=== PATIENT | female | born 1940 | race Caucasian/White ===

== ENCOUNTER 2018-08-18 15:31 | Outpatient (REF) | payer MEDICARE, OTHER, SELFPAY ==
[2018-08-18 20:53] LABS: TSH 0.84 uIU/mL (0.358-3.74)
== END 2018-08-18 15:51 ==
LOC: NCHCN 15:31
PROVIDERS: PCP Nurse Practitioner Family; Visit Provider Registered Nurse
DX: R41.3 Other amnesia (principal)
CPT/HCPCS: 84443

== ENCOUNTER 2019-01-06 14:43 | Outpatient (REF) | payer MEDICARE, OTHER, SELFPAY ==
[2019-01-06 21:20] LABS: Absolute Basophil Count 0.02 k/cumm (0.0-0.2); Absolute Eosinophil Count 0.16 k/cumm (0.0-0.7); Absolute Lymphocyte Count 1.11 k/cumm (1.2-3.4); Absolute Monocyte Count 0.51 k/cumm (0.11-0.7); Basophils % 0.4; Eosinophils % 3.1; HCT 36.2 % (36.0-46.0); HGB 11.7 g/dL (12.0-15.5); Lymphocytes % 21.3; Mean Corp. HGB Concentration 32.3 g/dL (32.0-36.0); Mean Corpuscular Hemoglobin 31.2 pg (27.0-33.0); Mean Corpuscular Volume 96.5 fL (80-95); Mean Platelet Volume 8.9 fL (8.0-11.0); Monocytes % 9.8; Neutrophils % 65.4; Platelet Count 355 x1000/uL (130-400); RBC 3.75 m/cumm (4.00-5.20); RBC Distribution Width 12.9 % (11.7-14.6)
[2019-01-06 21:36] LABS: Anion Gap 5.2 mmol/L (3-11); BUN 17 mg/dL (7-18); CO2 31.8 mmol/L (21.0-32.0); Calcium 9.4 mg/dL (8.5-10.1); Chloride 101 mmol/L (98-107); Estimated GFR 47.91 (mL/min/1.73m2); Glucose 117 mg/dL (70-100); Magnesium 1.9 mg/dL (1.8-2.4); Potassium 4.4 mmol/L (3.5-5.1); Sodium 138 mmol/L (136-145)
== END 2019-01-06 15:03 ==
LOC: NCHCN 14:43
PROVIDERS: PCP Nurse Practitioner Family; Visit Provider Family Medicine
DX: M79.602 Pain in left arm (principal)
CPT/HCPCS: 80048; 83735; 85025

== ENCOUNTER 2019-08-16 12:50 | Outpatient (REF) | payer MEDICARE, OTHER, SELFPAY ==
[2019-08-16 22:36] LABS: HCT 38.6 % (36.0-46.0); HGB 12.9 g/dL (12.0-15.5); Mean Corp. HGB Concentration 33.4 g/dL (32.0-36.0); Mean Corpuscular Hemoglobin 31.5 pg (27.0-33.0); Mean Corpuscular Volume 94.4 fL (80-95); Platelet Count 367 x1000/uL (130-400); RBC 4.09 m/cumm (4.00-5.20); RBC Distribution Width 12.9 % (11.7-14.6); White Blood Cell Count 7.74 k/cumm (4.4-10.8)
[2019-08-16 23:10] LABS: ALT 26 U/L (14-59); AST 19 U/L (15-37); Albumin 4.1 g/dL (3.4-5.0); Alkaline Phosphatase 65 U/L (46-116); Anion Gap 8.9 mmol/L (3-11); BUN 15 mg/dL (7-18); Bilirubin, Total 0.5 mg/dL (0.2-1.0); CO2 30.1 mmol/L (21.0-32.0); Calcium 10.5 mg/dL (8.5-10.1); Chloride 101 mmol/L (98-107); Estimated GFR 53.35 (mL/min/1.73m2); Glucose 86 mg/dL (70-100); Magnesium 2.2 mg/dL (1.8-2.4); Potassium 4.9 mmol/L (3.5-5.1); Sodium 140 mmol/L (136-145); TSH 1.37 uIU/mL (0.36-3.74); Total Protein 7.1 g/dL (6.4-8.2); Vitamin B12 1002 pg/mL (193-986)
== END 2019-08-16 13:10 ==
LOC: NCHCN 12:50
PROVIDERS: PCP Nurse Practitioner Family; Visit Provider Registered Nurse
DX: R41.3 Other amnesia (principal); F41.8 Other specified anxiety disorders; R27.9 Unspecified lack of coordination; R42 Dizziness and giddiness
CPT/HCPCS: 80053; 85027; 82607; 83735; 84443

== ENCOUNTER 2019-09-15 13:05 | Emergency (ER) | payer MEDICARE, OTHER, SELFPAY ==
[2019-09-15 13:11] VITALS: BP 176/95; PULSE 99; RESP 17; TEMP 35.6; O2SAT 95
--- NOTE | 2019-09-15 13:23 | DI.RAD_ITS ---
EXAM: XR SHOULDER RT COMPLETE 2+V INDICATION: non traumatic right shoulder pain. COMPARISON: No exams were available for comparison TECHNIQUE: 2D digital imaging was performed. FINDINGS: Fracture or dislocation is seen. There are no significant degenerative changes. The humeral head i s normally position. Visualized portions of the ribs are unremarkable. IMPRESSION: Negative right shoulder
--- NOTE | 2019-09-15 13:24 | W.ED.GENAD ---
Discharge Plan Disposition Patient Disposition: HOME Condition: Stable Discharge Details Chief Complaint: Orthopedic Clinical Impression: Pain in right shoulder Primary Care Provider: EARNEST LIND ED Provider: Nelson Raza Home Meds and New Rx's Prescriptions: Continued acetaminophen 325 MG tablet 325 mg PO Q4H PRN RF: 0 Os-Johnnie 500 + D3 1 EACH tablet,chewable 1 ea PO DAILY RF: 0 aspirin [Aspir-81] 81 MG tablet,delayed release (DR/EC) 81 mg PO DAILY RF: 0 bupropion HCl 100 MG tablet 150 mg PO BID Qty: 60 RF: 6 alendronate [Fosamax] 70 MG tablet 70 mg PO weekly Qty: 12 RF: 3 amlodipine 5 MG tablet 5 mg PO DAILY Qty: 90 RF: 4 melatonin 1 MG tablet 1 mg PO HS RF: 0 losartan 50 mg Tablet 50 mg PO DAILY RF: 0 atorvastatin 20 mg Tablet 20 mg PO DAILY RF: 0 budesonide 3 mg Capsule,Delayed,Extend.Release 6 mg PO DAILY RF: 0 Discharge Instructions Instructions: Shoulder Pain (ED) Additional Instructions: I suspect you have bursitis or a shoulder sprain follow up as scheduled next with your primary care provider return to the emergency department if you develop severe worsening pain, fevers or chest pain/pressure Medical Decision Making 79 yo female comes in with one month of right shoulder pain. She denies any falls or trauma. She states trying to lift objects or moving the shoulder hurts. She denies chest pain, sob, no fevers. She has no erythema or warmth of the shoulder, no findings to suggest septic joint. Has pain with palpation of the anterior and posterior shoulder, intact distal sensation. Does have full rom of the shoulder. suspect bursitis vs strain vs possible rotator cuff injury, will xray to eval for possible fx Xray negative on my read. Suspect strain vs bursitis. Advised RICE and prn nsaids, f/u with pcp as scheduled next and return precautions given Differential Diagnosis Differential Diagnosis: right shoulder fracture, dislocation, strain, bursitis Imaging Data Radiologic Study: Attestation: I personally reviewed and interpreted this imaging study as follows: Imaging: X-Ray My impression: no acute findings HPI General Mode of arrival: ambulatory. Date/Time Provider Initiated Documentation: 09/15/19 13:09. Limitations to Documentation: no limitations. Information obtained by: patient. History of Present Illness 79 year old F presents to the emergency department with the chief complaint of right shoulder pain, described as moderate, and it has been constant. Rest improves symptom(s), Movement worsens symptoms . Related Data Home Medications Medication Instructions Recorded Confirmed Os-Johnnie 500 + D3 1 ea PO DAILY tab.chew 05/22/13 09/15/19 acetaminophen 325 mg PO Q4H PRN tab-cap 05/22/13 09/15/19 aspirin [Aspir-81] 81 mg PO DAILY tab-cap 12/25/15 09/15/19 bupropion HCl 150 mg PO BID #60 tab-cap 11/20/16 09/15/19 melatonin 1 mg PO HS 04/05/17 09/15/19 alendronate [Fosamax] 70 mg PO weekly #12 tab-cap 09/28/17 09/15/19 amlodipine 5 mg PO DAILY #90 tab-cap 12/17/17 09/15/19 atorvastatin 20 mg PO DAILY 09/15/19 09/15/19 budesonide 6 mg PO DAILY 09/15/19 09/15/19 losartan 50 mg PO DAILY 09/15/19 09/15/19 Previous Rx's Medication Instructions Recorded alendronate [Fosamax] 70 mg PO weekly #12 tab-cap 09/28/17 amlodipine 5 mg PO DAILY #90 tab-cap 12/17/17 Allergies Allergy/AdvReac Type Severity Reaction Status Date / Time sertraline AdvReac Intermediate Diarrhea Unverified 09/15/19 13:17 General Stated Complaint: Orthopedic HEATHER: 3 Review of Systems Review of Systems ROS Unobtainable: All systems reviewed & are unremarkable except as noted in HPI and below Constitutional Constitutional: Denies chills, Denies fever(s) and Denies weakness ENT Ears, Nose, Mouth, and Throat: Denies change in voice Cardiovascular Cardiovascular: Denies chest pain and Denies dyspnea Respiratory Respiratory: Denies cough and Denies dyspnea Gastrointestinal Gastrointestinal: Denies abdominal pain, Denies nausea and Denies vomiting Musculoskeletal Musculoskeletal: Denies joint swelling Neurologic Neurologic: Denies weakness [facility] Surgical History (Updated 09/14/18 @ 14:35 by [employer] [place]) Biopsy of breast (~1967) BENIGN CYST Social History Smoking/Tobacco Use Status: Former Tobacco Use Alcohol Intake: former Drug use: Never Substance use type: does not use Do you feel safe at home: Yes Do you feel safe in your relationship?: Yes Exam Const General: no acute distress Orientation: alert HENMT Head: normal to inspection Ears: external ears normal General nose exam: external nose normal Mouth: moist mucous membranes Eyes General: appearance normal, both eyes and all related structures Neck Neck: normal visual inspection Resp Effort & Inspection: normal respiratory effort and able to speak in complete sentences Cardio Rate: regular rate Skin General skin exam: no rashes or lesions noted Neuro General: alert and oriented x3 Extrem General: normal to inspection Psych Mental Status: mental status grossly normal Course Vital Signs Vital signs: Vital Signs Temperature 35.6 C L 09/15/19 13:11 Pulse 99 H 09/15/19 13:11 Respiratory Rate 17 09/15/19 13:11 Blood Pressure 176/95 H 09/15/19 13:11 Pulse Oximetry 95 09/15/19 13:11 Temperature 35.6 C L 09/15/19 13:11 Temperature Source Skin 09/15/19 13:11 Pulse 99 H 09/15/19 13:11 Respiratory Rate 17 09/15/19 13:11 Respiratory Effort Non-Labored 09/15/19 13:16 Blood Pressure 176/95 H 09/15/19 13:11 Blood Pressure Position Sitting 09/15/19 13:11 Pulse Oximetry 95 09/15/19 13:11 Oxygen Delivery Method Room Air 09/15/19 13:11 Oxygen Flow Rate 0 09/15/19 13:11 Pain Level 9 09/15/19 13:16
[2019-09-15] MEDS: Ibuprofen 600 MG TAB PO (13:36)
[2019-09-15 14:12] VITALS: BP 148/85; PULSE 91; TEMP 35.7; O2SAT 92
== END 2019-09-15 14:15 | disposition home or self-care (01) ==
PROVIDERS: Emergency Provider Emergency Medicine; PCP Registered Nurse
DX: M25.511 Pain in right shoulder (principal); X50.0XXA Overexertion from strenuous movement or load, initial encounter
CPT/HCPCS: 99283; 73030; 99282

== ENCOUNTER 2020-05-06 02:29 | Outpatient (CLI) | payer MEDICARE, OTHER, SELFPAY ==
--- NOTE | 2020-05-06 08:26 | DI.RAD_ITS ---
EXAM: XR CERVICAL SPINE COMP 4-5V CLINICAL HISTORY: NECK PAIN, M54.2,NOT IMPROVED WITH PT,RISK FOR COMP FX, H/O OSTEOPOROSIS. TECHNIQUE: 2D digital imaging was performed. COMPARISON: No exams were available for comparison FINDINGS: The odontoid is intact. The lateral masses are well aligned. The bones are osteopenic. There is no acute fracture identified. Grade 1 anterolisthesis of C4 on C5 is noted. There is mild bilateral n eural foraminal narrowing at the C 4 C5 level. The prevertebral soft tissues are unremarkable. IMPRESSION: 1. No acute fracture in the cervical spine. 2. Grade 1 anterolisthesis of C4 on C5 resulting in mild bilateral neural foraminal narrowing. 3. Osteopenia. DATA REPOSITORY: RADIATION DOSE DELIVERED:
== END 2020-05-06 02:49 ==
PROVIDERS: PCP Registered Nurse; Visit Provider Registered Nurse
DX: M54.2 Cervicalgia (principal); M85.88 Other specified disorders of bone density and structure, other site; M43.12 Spondylolisthesis, cervical region
CPT/HCPCS: 72050

== ENCOUNTER 2020-10-25 10:22 | Outpatient (REF) | payer MEDICARE, OTHER, SELFPAY ==
[2020-10-25 21:11] LABS: HCT 38.7 % (36.0-46.0); HGB 12.7 g/dL (11.2-15.7); MCH 32.2 pg (27.0-33.0); MCHC 32.8 % (32.0-36.0); MCV 98.2 fL (80-95); MPV 9.5 fL (8.0-11.0); Platelet Count 365 10^3/uL (130-400); RBC 3.94 10^6/uL (3.93-5.22); RDW 12.2 % (11.7-14.6); RDW-SD 44.5 fL; WBC 6.15 10^3/uL (4.4-10.8)
[2020-10-25 21:57] LABS: ALT 27 U/L (14-59); AST 19 U/L (15-37); Alkaline Phosphatase 68 U/L (46-116); Anion Gap 6.8 mmol/L (3-11); BUN 13 mg/dL (7-18); Bilirubin, Total 0.4 mg/dL (0.2-1.0); CO2 29.2 mmol/L (21.0-32.0); CREATININE 1.04 mg/dL (0.55-1.02); Calcium 9.3 mg/dL (8.5-10.1); Chloride 103 mmol/L (98-107); Estimated GFR 50.86 (mL/min/1.73m2); Glucose 92 mg/dL (74-106); Potassium 5.2 mmol/L (3.5-5.1); Sodium 139 mmol/L (136-145); Total Protein 7.2 g/dL (6.4-8.2)
== END 2020-10-25 10:42 ==
LOC: NCHCN 10:22
PROVIDERS: PCP Registered Nurse; Visit Provider Registered Nurse
DX: D64.9 Anemia, unspecified (principal); I10 Essential (primary) hypertension; F41.8 Other specified anxiety disorders
CPT/HCPCS: 80053; 85027

== ENCOUNTER 2020-11-06 10:48 | Outpatient (REF) | payer MEDICARE, SELFPAY ==
[2020-11-06 22:26] LABS: Potassium 4.4 mmol/L (3.5-5.1)
== END 2020-11-06 11:08 ==
LOC: NCHCN 10:48
PROVIDERS: PCP Registered Nurse; Visit Provider Registered Nurse
DX: E87.5 Hyperkalemia (principal)
CPT/HCPCS: 84132

== ENCOUNTER 2021-09-11 21:33 | Outpatient (REF) | payer MEDICARE, SELFPAY ==
[2021-09-11 21:15] LABS: Anion Gap 4.8 mmol/L (3-11); BUN 15 mg/dL (7-18); CO2 31.2 mmol/L (21.0-32.0); Calcium 9.7 mg/dL (8.5-10.1); Chloride 104 mmol/L (98-107); Estimated GFR 53.08 (mL/min/1.73m2); Glucose 96 mg/dL (74-106); Potassium 4.7 mmol/L (3.5-5.1); Sodium 140 mmol/L (136-145)
[2021-09-11 21:41] LABS: Vitamin D 25 Total 52.9 ng/mL (30-100)
[2021-09-15 10:58] LABS: Parathyroid Hormone,Intact 36 pg/mL (19-88)
== END 2021-09-11 21:34 | disposition home or self-care (01) ==
LOC: NCHCN 21:33
PROVIDERS: PCP Registered Nurse; Visit Provider Registered Nurse
DX: M81.0 Age-related osteoporosis without current pathological fracture (principal)
CPT/HCPCS: 80048; 82306; 83970

== ENCOUNTER 2021-10-15 13:05 | Outpatient (REF) | payer MEDICARE, SELFPAY ==
[2021-10-15 21:15] LABS: HCT 38.9 % (36.0-46.0); HGB 12.7 g/dL (11.2-15.7); MCH 30.6 pg (27.0-33.0); MCHC 32.6 % (32.0-36.0); MCV 93.7 fL (80-95); MPV 9.6 fL (8.0-11.0); Platelet Count 350 10^3/uL (130-400); RBC 4.15 10^6/uL (3.93-5.22); RDW 13.1 % (11.7-14.6); RDW-SD 45.1 fL; WBC 5.31 10^3/uL (4.4-10.8)
[2021-10-15 22:03] LABS: TSH 1.14 uIU/mL (0.36-3.74); Vitamin B12 1176 pg/mL (193-986)
== END 2021-10-15 13:06 | disposition home or self-care (01) ==
LOC: NCHCN 13:05
PROVIDERS: PCP Registered Nurse; Visit Provider Registered Nurse
DX: R41.3 Other amnesia (principal)
CPT/HCPCS: 85027; 82607; 84443

== ENCOUNTER 2023-04-15 15:21 | Outpatient (REF) | payer MEDICARE, OTHER, SELFPAY ==
[2023-04-15 21:04] LABS: Abs Immature Grans 0.02 10^3/uL (0.0-0.06); Absolute Basophil Count 0.06 10^3/uL (0.0-0.2); Absolute Eosinophil Count 0.18 10^3/uL (0.0-0.7); Absolute Lymphocyte Count 1.56 10^3/uL (1.2-3.4); Absolute Monocyte Count 0.54 10^3/uL (0.1-0.8); Basophils % 0.9; Eosinophils % 2.8; HCT 37.6 % (36.0-46.0); HGB 12.4 g/dL (11.2-15.7); Immature Grans % 0.3; Lymphocytes % 24.5; MCH 30.7 pg (27.0-33.0); MCV 93 fL (80-95); Monocytes % 8.5; Platelet Count 265 10^3/uL (130-400); RBC 4.04 10^6/uL (3.93-5.22); RDW 13.3 % (11.7-14.6); RDW-SD 45.5 fL; WBC 6.36 10^3/uL (4.4-10.8)
[2023-04-15 21:16] LABS: ALT 21 U/L (14-59); AST 18 U/L (15-37); Albumin 4.2 g/dL (3.4-5.0); Alkaline Phosphatase 65 U/L (46-116); Anion Gap 8.1 mmol/L (3-11); BUN 17 mg/dL (7-18); Bilirubin, Total 0.3 mg/dL (0.2-1.0); CO2 26.9 mmol/L (21.0-32.0); CREATININE 1.1 mg/dL (0.55-1.02); Chloride 102 mmol/L (98-107); Estimated GFR 49.55 (mL/min/1.73m2); Glucose 102 mg/dL (74-106); Lipase 42 U/L (16-77); Potassium 4.9 mmol/L (3.5-5.1); Sodium 137 mmol/L (136-145); Total Protein 7.5 g/dL (6.4-8.2)
== END 2023-04-15 15:22 | disposition home or self-care (01) ==
LOC: NCHCN 15:21
PROVIDERS: PCP Registered Nurse; Visit Provider Registered Nurse
DX: I10 Essential (primary) hypertension (principal); K52.9 Noninfective gastroenteritis and colitis, unspecified; E10.9 Type 1 diabetes mellitus without complications; M81.0 Age-related osteoporosis without current pathological fracture
CPT/HCPCS: 80053; 82306; 83690; 85025

== ENCOUNTER 2024-10-09 18:33 | Outpatient (REF) | payer MEDICARE, OTHER, SELFPAY ==
[2024-10-09 21:39] LABS: HCT 35.8 % (36.0-46.0); HGB 11.7 g/dL (11.2-15.7); MCH 30.6 pg (27.0-33.0); MCHC 32.7 % (32.0-36.0); MCV 94 fL (80-95); MPV 9.6 fL (8.0-11.0); Platelet Count 391 10^3/uL (130-400); RBC 3.82 10^6/uL (3.93-5.22); RDW 12.7 % (11.7-14.6); RDW-SD 43.4 fL; WBC 7.09 10^3/uL (4.4-10.8)
[2024-10-09 21:58] LABS: ALT 24 U/L (14-59); AST 23 U/L (15-37); Albumin 3.6 g/dL (3.4-5.0); Alkaline Phosphatase 90 U/L (46-116); Anion Gap 8.3 mmol/L (3-11); BUN 16 mg/dL (7-18); Bilirubin, Total 0.33 mg/dL (0.2-1.0); CO2 28.7 mmol/L (21.0-32.0); CREATININE 1.1 mg/dL (0.55-1.02); Calcium 9.9 mg/dL (8.5-10.1); Chloride 104 mmol/L (98-107); Estimated GFR 49.24 (mL/min/1.73m2); Glucose 89 mg/dL (74-106); Potassium 4.7 mmol/L (3.5-5.1); Sodium 141 mmol/L (136-145); Total Protein 7.4 g/dL (6.4-8.2)
== END 2024-10-09 18:34 | disposition home or self-care (01) ==
LOC: NCHCN 18:33
PROVIDERS: PCP Registered Nurse; Visit Provider Family Medicine
DX: I10 Essential (primary) hypertension (principal); D64.9 Anemia, unspecified
CPT/HCPCS: 80053; 85027